=== PATIENT | female | born 1960 | race Two or more races ===

== ENCOUNTER 2017-05-05 13:28 | Outpatient (CLI) | payer OTHER | END 2017-05-05 13:41 | disposition home or self-care (01) | LOC: SONOGRAMA 13:28 | DX: E04.1 Nontoxic single thyroid nodule (principal) ==

== ENCOUNTER 2017-10-16 13:51 | Outpatient (CLI) | payer OTHER | END 2017-10-16 13:56 | disposition home or self-care (01) | LOC: MAMO-SONO 13:51 | DX: N60.11 Diffuse cystic mastopathy of right breast (principal); N60.12 Diffuse cystic mastopathy of left breast; Z12.31 Encounter for screening mammogram for malignant neoplasm of breast; E04.1 Nontoxic single thyroid nodule ==

== ENCOUNTER 2018-05-28 13:56 | Outpatient (CLI) | payer OTHER | END 2018-05-28 13:58 | disposition home or self-care (01) | LOC: SONOGRAMA 13:56 | DX: E04.1 Nontoxic single thyroid nodule (principal) ==

== ENCOUNTER 2018-06-11 12:54 | Outpatient (CLI) | payer OTHER | END 2018-06-11 13:17 | disposition home or self-care (01) | LOC: SONOGRAMA 12:54 → MAMO-SONO 13:15 → SONOGRAMA 13:17 | DX: N39.0 Urinary tract infection, site not specified (principal) ==

== ENCOUNTER 2018-11-23 08:25 | Outpatient (CLI) | payer OTHER | END 2018-11-23 09:37 | disposition home or self-care (01) | LOC: MAMO-SONO 08:25 | DX: N60.11 Diffuse cystic mastopathy of right breast (principal); N60.12 Diffuse cystic mastopathy of left breast; Z87.898 Personal history of other specified conditions ==

== ENCOUNTER 2019-11-27 12:32 | Outpatient (CLI) | payer OTHER | END 2019-11-27 12:40 | disposition home or self-care (01) | LOC: MAMO-SONO 12:32 | DX: Z12.31 Encounter for screening mammogram for malignant neoplasm of breast (principal); N60.11 Diffuse cystic mastopathy of right breast; N60.12 Diffuse cystic mastopathy of left breast ==

== ENCOUNTER 2021-02-22 13:31 | Outpatient (CLI) | payer OTHER | END 2021-02-22 13:40 | disposition home or self-care (01) | LOC: MAMO-SONO 13:31 | DX: N60.11 Diffuse cystic mastopathy of right breast (principal); N60.12 Diffuse cystic mastopathy of left breast; N64.59 Other signs and symptoms in breast; Z12.31 Encounter for screening mammogram for malignant neoplasm of breast ==

== ENCOUNTER 2022-03-23 11:26 | Outpatient (CLI) | payer OTHER | END 2022-03-23 11:40 | disposition home or self-care (01) | LOC: MAMO-SONO 11:26 | DX: N60.11 Diffuse cystic mastopathy of right breast (principal); N60.12 Diffuse cystic mastopathy of left breast; N64.4 Mastodynia ==

== ENCOUNTER 2023-03-27 13:28 | Outpatient (CLI) | payer OTHER | END 2023-03-27 13:33 | disposition home or self-care (01) | LOC: MAMO-SONO 13:28 | DX: N60.11 Diffuse cystic mastopathy of right breast (principal); N60.12 Diffuse cystic mastopathy of left breast; N64.4 Mastodynia; Z12.31 Encounter for screening mammogram for malignant neoplasm of breast ==

== ENCOUNTER 2023-04-04 13:53 | Outpatient (CLI) | payer OTHER | END 2023-04-04 13:54 | disposition home or self-care (01) | LOC: NUCLEAR 13:53 | DX: Z13.820 Encounter for screening for osteoporosis (principal) ==

== ENCOUNTER → 2024-04-01 | Outpatient (CLI) | payer OTHER | END | disposition home or self-care (01) | LOC: MAMO-SONO 09:12 | DX: N60.11 Diffuse cystic mastopathy of right breast (principal); N60.12 Diffuse cystic mastopathy of left breast; N64.4 Mastodynia ==

== ENCOUNTER 2024-10-01 12:41 | Outpatient (CLI) | payer OTHER | END 2024-10-01 12:47 | disposition home or self-care (01) | LOC: SONOGRAMA 12:41 | PROVIDERS: ATTEND Student in an Organized Health Care Education/Training Program | DX: N39.0 Urinary tract infection, site not specified (principal); R31.9 Hematuria, unspecified ==

== ENCOUNTER 2024-11-27 09:34 | Outpatient (CLI) | payer OTHER | END 2024-11-27 09:38 | disposition home or self-care (01) | LOC: SONOGRAMA 09:34 | PROVIDERS: ATTEND Family Medicine | DX: R85.9 Unspecified abnormal finding in specimens from digestive organs and abdominal cavity (principal) ==

== ENCOUNTER 2025-01-17 12:23 | Outpatient (CLI) | payer OTHER | END 2025-01-17 12:27 | disposition home or self-care (01) | LOC: RAD 12:23 | PROVIDERS: ATTEND Family Medicine | DX: M25.561 Pain in right knee (principal); M25.562 Pain in left knee ==

== ENCOUNTER 2025-04-02 10:19 | Outpatient (CLI) | payer OTHER | END 2025-04-02 10:32 | disposition home or self-care (01) | LOC: MAMO-SONO 10:19 | DX: N64.4 Mastodynia (principal); N60.11 Diffuse cystic mastopathy of right breast; N60.12 Diffuse cystic mastopathy of left breast; Z12.31 Encounter for screening mammogram for malignant neoplasm of breast ==

== ENCOUNTER → 2025-04-07 11:08 | Outpatient (CLI) | payer OTHER | END | disposition home or self-care (01) | LOC: NUCLEAR 11:00 | DX: Z13.820 Encounter for screening for osteoporosis (principal); M81.0 Age-related osteoporosis without current pathological fracture ==